=== PATIENT | male | born 1945 | race Caucasian/White ===

== ENCOUNTER 2018-07-21 17:29 | Inpatient (IN) | payer MEDICARE, BC ==
[~2018-07-21] VITALS: Ht 180.3 cm; Wt 72.6 kg
[2018-07-21] MEDS ORDERED: METOPROLOL SUCC50 MG ORAL (17:34)
[2018-07-21] MEDS ORDERED: AMIODARONE HCL100 MG ORAL (17:34)
[2018-07-21] MEDS ORDERED: FUROSEMIDE40 MG ORAL (17:34)
[2018-07-21] MEDS ORDERED: LORAZEPAM0.5 GM MC (17:34)
[2018-07-21] MEDS ORDERED: LIPITOR80 MG ORAL (17:34)
[2018-07-21] MEDS ORDERED: REMERON45 M1 ORAL (17:34)
[2018-07-21] MEDS ORDERED: XARELTO20 MG ORAL (17:34)
[2018-07-21] MEDS ORDERED: POTASSIUM CHLO20 ME3 PO (17:34)
--- NOTE | 2018-07-21 17:37 | Emergency Room Report ---
History of Present Illness General Chief Complaint: Chest Pain Source: Patient, Medical Record Present Illness HPI The patient presents with chest pain. He states it feels like when he had atrial fibrillation. He denies any palpitations at this time or dizziness. This began at the end of last week. He rates it /10. He was seen at a clinic or earlier today and they did an EKG that was abnormal. There is ST depressions across the septum. Paramedics were summoned. They repeat EKG and the ST changes corrected. They called it into [facility] and they declined the transport to them. The patient was given aspirin and states that he is pain- free at this time. The patient had rapid atrial fibrillation in May. He had cardioversion that was successful at that time. He was discharged on Xarelto. He is also taking amiodarone and metoprolol. Status post CABG x2. No fevers, chills, productive cough, sore throat, rashes, bleeding, melena, hematuria, calf pain or edema. Allergies: Coded Allergies: No Known Allergies (Unverified , 07/21/18) Patient History Past Medical History: see triage record Past Surgical History: CABG Social History: Denies: smoking Social History Narrative from home Reviewed Nursing Documentation: PMH: Agreed; PSxH: Agreed Nursing Documentation-PMH Past Medical History: No History, Except For Hx Cardiac Problems: Yes - CHF; AFIB;CAD; ANEMIA CABG X 2 Review of Systems All Other Systems: negative except mentioned in HPI Physical Exam Vital Signs Date Time Temp Pulse Resp B/P (MAP) Pulse Ox O2 Delivery O2 Flow Rate FiO2 07/21/18 17:23 97.5 102 16 118/76 100 Room Air Sp02 EP Interpretation: reviewed, normal General Appearance: no apparent distress, GCS 15, thin Head: normocephalic Eyes: bilateral eye normal inspection, bilateral eye PERRL ENT: moist mucus membranes Neck: supple Respiratory: lungs clear, normal breath sounds Cardiovascular #1: irregularly irregular - Although mostly regular Cardiovascular #2: 2+ radial (L) Gastrointestinal: normal inspection, normal bowel sounds, non tender, no mass, non-distended Genitourinary: no CVA tenderness Musculoskeletal: back normal, normal range of motion, no calf tenderness, Mirella 's Sign negative Neurologic: alert, oriented x3, grossly normal Psychiatric: depressed affect Skin: normal inspection, warm/dry Medical Decision Making Diagnostic Impression: Primary Impression: Chest pain Qualified Codes: R07.9 - Chest pain, unspecified Additional Impressions: Atrial fibrillation Qualified Codes: I48.0 - Paroxysmal atrial fibrillation Cardioversion Elevated troponin ER Course Patient presents with chest pain with an EKG dated normalizes with decrease in pain. Differential includes acute coronary syndrome, acute myocardial infarction, STEMI posterior, unstable angina amongst others. He is in atrial fibrillation at this time. Evaluation will be with EKG, chest x-ray and labs. The patient will be given nitroglycerin paste. Patient is placed on a city engineer. EKG with atrial fibrillation rate controlled and septal ST depression. This is not a posterior STEMI. Chest x-ray with right atrial enlargement. No infiltrates. Normal white count with slight anemia. INR is prolonged. Slightly low potassium. Elevated BNP. Called with marginally high troponin. Aspirin and nitrates already given. Patient bradycardic. Repeat EKG. 19:00 SB rate 55 NSSTTW changes. Because of the bradycardia metoprolol is held. Because of being on Xarelto no heparin is given. Discussed with patient's sports marketing coordinator. Agrees with admission. Discussed findings with patient. Calling Dr. Deshpande. Laboratory Tests Test 07/21/18 17:48 White Blood Count 5.2 K/UL (4.8-10.8) Red Blood Count 3.75 M/UL (4.70-6.10) L Hemoglobin 11.3 G/DL (14.2-18.0) L Hematocrit 35.1 % (42.0-52.0) L Mean Corpuscular Volume 94 FL (80-99) Mean Corpuscular Hemoglobin 30.2 PG (27.0-31.0) Mean Corpuscular Hemoglobin Concent 32.2 G/DL (32.0-36.0) Red Cell Distribution Width 15.0 % (11.6-14.8) H Platelet Count 172 K/UL (150-450) Mean Platelet Volume 7.4 FL (6.5-10.1) Neutrophils (%) (Auto) 66.0 % (45.0-75.0) Lymphocytes (%) (Auto) 15.4 % (20.0-45.0) L Monocytes (%) (Auto) 15.7 % (1.0-10.0) H Eosinophils (%) (Auto) 1.6 % (0.0-3.0) Basophils (%) (Auto) 1.3 % (0.0-2.0) Prothrombin Time 17.9 SEC (9.30-11.50) H Prothrombin Time INR 1.7 (0.9-1.1) H PTT 39 SEC (23-33) H Sodium Level 141 MMOL/L (136-145) Potassium Level 3.3 MMOL/L (3.5-5.1) L Chloride Level 104 MMOL/L (98-107) Carbon Dioxide Level 26 MMOL/L (21-32) Anion Gap 11 mmol/L (5-15) Blood Urea Nitrogen 29 mg/dL (7-18) H Creatinine 1.4 MG/DL (0.55-1.30) H Estimate Glomerular Filtration Rate mL/min (>60) Glucose Level 126 MG/DL (74-106) H Calcium Level 9.3 MG/DL (8.5-10.1) Total Bilirubin 0.9 MG/DL (0.2-1.0) Aspartate Amino Transferase (AST) 42 U/L (15-37) H Alanine Aminotransferase (ALT) 33 U/L (12-78) Alkaline Phosphatase 93 U/L (46-116) Total Creatine Kinase 58 U/L (26-308) Troponin I 0.078 ng/mL (0.000-0.056) Pro-B-Type Natriuretic Peptide 3062 pg/mL (0-125) H Total Protein 7.6 G/DL (6.4-8.2) Albumin 3.4 G/DL (3.4-5.0) Globulin 4.2 g/dL Albumin/Globulin Ratio 0.8 (1.0-2.7) L EKG Diagnostic Results Rate: normal Rhythm: other - A fib ST Segments: other - st depression septally Rhythm Strip Diag. Results EP Interpretation: yes Rhythm: NSR, no PVC's, no ectopy Chest X-Ray Diagnostic Results Chest X-Ray Diagnostic Results : Chest X-Ray Ordered: Yes # of Views/Limited/Complete: 1 View Indication: Chest Pain EP Interpretation: Yes Interpretation: no consolidation, no effusion, no pneumothorax, other - Enlarged right atrium Impression: Other Electronically Signed by: Electronically signed by Jose Vasquez MD Last Vital Signs Date Time Temp Pulse Resp B/P (MAP) Pulse Ox O2 Delivery O2 Flow Rate FiO2 07/22/18 00:00 55 07/22/18 00:00 97.6 19 129/63 (85) 96 07/21/18 22:02 Room Air Status: improved Disposition: ADMITTED INPATIENT Condition: Serious Jose Vasquez MD Jul 21, 2018 17:37
[2018-07-21 17:38] VITALS: BP 116/68
--- NOTE | 2018-07-21 17:40 | NUR ---
ED Nurse Note: pt brought in by amb from doctors office c/o afib. pt had afib in may and was cardiovert and was managed by medication amiodarone and xarelto but went to doctor's office and noted afib. pt currently denies chest pain. Pt AA&ox4, gcs=15, skin warm and dry, resp even and unlabored on RA, -n/v/d, ambulatory w/o assisted devices w/ steady gait. Afib on carrot buncher, vss, will cont monitor. hx CABG.
[2018-07-21] MEDS ORDERED: Nitroglycerin 2% oint pkt TOPIC ONE (17:45)
--- NOTE | 2018-07-21 18:00 | NUR ---
ED Nurse Note: cardiology Dr. Bonner [phone], ERMD notified.
[2018-07-21 18:06] LABS: BASOPHILS % (AUTO) 1.3 % (0.0-2.0); EOSINOPHILS % (AUTO) 1.6 % (0.0-3.0); HEMATOCRIT 35.1 % (42.0-52.0); HEMOGLOBIN 11.3 G/DL (14.2-18.0); LYMPHOCYTES % (AUTO) 15.4 % (20.0-45.0); MEAN CORPUSCULAR VOLUME 94 FL (80-99); MONOCYTES % (AUTO) 15.7 % (1.0-10.0); PLATELET COUNT 172 K/UL (150-450); RED BLOOD COUNT 3.75 M/UL (4.70-6.10); WHITE BLOOD COUNT 5.2 K/UL (4.8-10.8)
[2018-07-21 18:12] LABS: ANION GAP 11 mmol/L (5-15); BLOOD UREA NITROGEN 29 mg/dL (7-18); CALCIUM 9.3 MG/DL (8.5-10.1); CARBON DIOXIDE 26 MMOL/L (21-32); CHLORIDE 104 MMOL/L (98-107); CREATININE 1.4 MG/DL (0.55-1.30); POTASSIUM 3.3 MMOL/L (3.5-5.1); SODIUM 141 MMOL/L (136-145)
[2018-07-21 18:13] LABS: INR 1.7 (0.9-1.1)
[2018-07-21 18:23] LABS: ALANINE AMINOTRANSFERASE 33 U/L (12-78); ALBUMIN 3.4 G/DL (3.4-5.0); ALBUMIN/GLOBULIN RATIO 0.8 (1.0-2.7); ALKALINE PHOSPHATASE 93 U/L (46-116); ASPARTATE AMINO TRANSFERASE 42 U/L (15-37); BILIRUBIN,TOTAL 0.9 MG/DL (0.2-1.0); CREATINE KINASE 58 U/L (26-308)
[2018-07-21 18:38] VITALS: BP 118/57
--- NOTE | 2018-07-21 18:41 | NUR ---
ED Nurse Note: Pt taken to CT via janice.
--- NOTE | 2018-07-21 19:00 | NUR ---
ED Nurse Note: repeat EKG done by KATYA Cason pt currently sinus roger on monitoring and evaluation advisor.
[2018-07-21] MEDS ORDERED: LORAZEPAM0.5 MG ORAL (19:31)
[2018-07-21 19:38] VITALS: BP 108/51
[2018-07-21] MEDS ORDERED: Nitroglycerin Subl 0.4mg tab SL PRN (19:45)
[2018-07-21 20:38] VITALS: BP 107/51
[2018-07-21] MEDS: Metoprolol Tartrate 50mg tab ORAL SCH (21:00)
--- NOTE | 2018-07-21 21:12 | NUR ---
ED Nurse Note: report given to ANTONELLA Osman from Tele.
--- NOTE | 2018-07-21 21:55 | NUR ---
ED Nurse Note: pt transferred to tele, all belongings sent w/ pt, pt vss, resp even and unlabored on RA, sinus roger on cardiac mointor.
[2018-07-21 22:00] VITALS: BP 112/63
--- NOTE | 2018-07-21 22:00 | NUR ---
NURSE NOTES: Report received from ANTONELLA Salcedo. Pt arrived on unit via gurney. surgery scheduler was applied. Pt heart rhythm is SB. Pt belongings verified at bedside. Pt is in stable condition. Pt is A+Ox4 with no signs or symptoms of pain or cardiopulmonary distress noted. Call light is within reach, bed in the lowest position, bed rails engaged and raised x3. Will continue to monitor
--- NOTE | 2018-07-21 22:15 | Consultation ---
DATE OF CONSULTATION: 07/21/2018 CONSULTING PHYSICIAN: Titi Finn M.D. REFERRING PHYSICIAN: Bharathi Deshpande M.D. REASON FOR CONSULTATION: Acute kidney injury. HISTORY OF PRESENT ILLNESS: The patient is a pleasant 73-year-old gentleman who is being admitted for further evaluation and care of chest pain that started over this past week. He notes that it is approximately 6/10. It started getting worse over at the clinic today. The patient does have a history of atrial fibrillation and in 2011 had a 2-vessel CABG. The patient's breathing has improved. Chest pain has been alleviated. Denies any nausea, vomiting, or diarrhea. ALLERGIES: No known drug allergies. PAST MEDICAL HISTORY: 1. Coronary artery disease. 2. Hypertension. 3. Atrial fibrillation. 4. Anxiety. SOCIAL HISTORY: The patient denies any current tobacco, alcohol, or illicit drug use. PAST SURGICAL HISTORY: Status post coronary artery bypass graft x2 vessel. REVIEW OF SYSTEMS: NEUROLOGIC: The patient denies headache, change in vision, syncope, or presyncopal episodes. CARDIOVASCULAR: The patient was having chest pain and pressure. PULMONARY: No difficulty breathing, productive cough, or sputum. GASTROINTESTINAL/GENITOURINARY: No change urinary or bowel habits. No nausea, vomiting, or diarrhea. ENDOCRINOLOGY: No night sweats, fevers, or chills. LABORATORY DATA: Labs dated 07/21/2018, white cell count 5.2, hemoglobin 11.3, platelet count 172. Sodium 141, potassium 3.3, BUN 29, creatinine 1.4. Troponin 0.078. INR 1.7. PHYSICAL EXAMINATION: VITAL SIGNS: Blood pressure 108/53, respiratory 16, pulse 103, temperature 97.5, 100% oxygen saturation on room air. GENERAL: The patient awake, alert, in no distress. HEENT: Extraocular muscles intact. No lymphadenopathy noted. Oropharyngeal mucosa is clear and dry. CARDIOVASCULAR: S1, S2. Irregularly irregular. Tachycardic. PULMONARY: Clear to auscultation bilaterally. No rales, rhonchi, or wheezes. ABDOMEN: Nondistended and nontender. EXTREMITIES: No edema noted. ASSESSMENT AND PLAN: 1. Acute kidney injury versus chronic kidney disease. Current creatinine 1.4. At this time, we will hold any diuretics and monitor the patient carefully. Renal ultrasound to rule out the possibility of obstruction. Repeat BMP in a.m. and proceed accordingly. 2. Acute coronary syndrome/chest pain with elevated troponin. Defer management to Cardiology. 3. Atrial fibrillation. The patient on Xarelto. 4. Hypertension. We will continue metoprolol and avoid hypotension. 5. Hypokalemia. We will replace potassium. Titi Finn MD DR: MEGAN JOB#: [id number] CC:
[2018-07-21] MEDS: Atorvastatin 20mg tab ORAL SCH (22:25)
[2018-07-21] MEDS ORDERED: Amiodarone 200mg tab ORAL SCH (23:00)
[2018-07-21] MEDS: LORazepam 0.5mg tab ORAL PRN (23:06)
[2018-07-22] VITALS: BP 129/63
[2018-07-22] MEDS: Aspirin Baby 81mg ORAL SCH ×2 (00:16→09:36)
--- NOTE | 2018-07-22 02:30 | Consultation ---
DATE OF CONSULTATION: 07/21/2018 CARDIOLOGY CONSULTATION CONSULTING PHYSICIAN: Jose Diamond M.D. REFERRING PHYSICIAN: Bharathi Deshpande M.D. REASON FOR CONSULTATION: Acute myocardial ischemia. HISTORY OF PRESENT ILLNESS: This 73-year-old male, who is status post coronary artery bypass graft surgery in 2011. He has not had any chest pain of concern or hospitalizations since several days ago, however, he has had on and off chest pressure and saw his primary certified industrial hygienist today. Concern was raised over his electrocardiogram and he was referred to the hospital. Paramedics were summoned and he was brought to the [facility] even though his doctor's office is at [facility]. The patient's initial troponin level was 0.08 and his EKG revealed sinus rhythm with anterolateral T-wave inversions suggesting acute ischemia. The patient's chest pain apparently resolved prior to his arrival here. PAST MEDICAL HISTORY: Hypertension, paroxysmal atrial fibrillation, and coronary artery disease as described above. SOCIAL HISTORY: Negative for smoking, alcohol, or substance abuse. FAMILY HISTORY: Noncontributory. ALLERGIES: Unknown. MEDICATIONS: Prior to admission, reviewed and reconciled and include rivaroxaban. REVIEW OF SYSTEMS: No fevers. No chills. No cough. No sputum production. No history of abnormal blood clotting. No prior history of stroke. No history of diabetes mellitus, cholesterol, parameters are not presently available. PHYSICAL EXAMINATION: VITAL SIGNS: Blood pressure 108/53, pulse 103, and respirations 16. Afebrile. HEENT: Conjunctivae are pink. Oropharynx clear. NECK: Supple. LUNGS: Clear. Median sternotomy scar. HEART: Regular rhythm and rate. Normal S1, S2. There is a fourth heart sound. ABDOMEN: Soft. EXTREMITIES: No edema. DIAGNOSTIC DATA: EKG as noted above. Troponin 0.078. Potassium 3.3. Hemoglobin 11.3. IMPRESSION: 1. Acute coronary insufficiency and probable non-ST elevation myocardial infarction in the setting of known ischemic heart disease with prior coronary artery bypass graft. 2. Paroxysmal atrial fibrillation, on rivaroxaban for cardioembolic prophylaxis. 3. Hypertensive heart disease with controlled blood pressure. 4. Hypokalemia. 5. Chronic kidney disease. PLAN: 1. Hold rivaroxaban and start Lovenox in anticipation of probable coronary angiography. This will require transfer to [facility]. 2. Continue beta-efrain, add aspirin. 3. Check lipid panel. 4. Anticipate statin therapy. 5. Replace potassium. 6. Check magnesium. Jose Diamond M.D. DR: JB JOB#: [id number] CC:
[2018-07-22 04:00] VITALS: BP 111/57
--- NOTE | 2018-07-22 04:15 | History and Physical Report ---
DATE OF ADMISSION: 07/21/2018 HISTORY OF PRESENT ILLNESS: This is a 73-year-old male who came to the hospital with chest pain. The patient has a history of atrial fibrillation, however, denies any palpitations or dizziness. He was seen at the clinic earlier and he was told that he has abnormal EKG and he was transferred to [facility] for subsequent management and care. I reviewed his records from outside facility at [facility] and note that the patient has a history of hypertension, atrial fibrillation, CAD, status post CABG, ROSALES to LAD, and SVG to D1 ramus. He had a cardioversion in May 2018 and is maintained on Xarelto, metoprolol, and amiodarone. The patient obviously had a diastolic heart failure and is a diabetic dependent with a history of right pleural effusion. At this time, the patient states that he is feeling well. He is intolerant of aspirin. HOME MEDICATIONS: Reviewed and reconciled in the chart. ALLERGIES: None reported. SURGERIES: CABG, past history as above, atrial fibrillation, CAD, anemia, CABG, and CHF. Denies any headaches, hematemesis, melena, or hematochezia. PHYSICAL EXAMINATION: GENERAL: Reveals a 73-year-old male. HEENT: Unremarkable. LUNGS: Clear breath sounds bilaterally. Normal heart sounds. ABDOMEN: Soft. NEUROLOGIC: Nonfocal. PHYSICAL EXAMINATION: VITAL SIGNS: Blood pressure is 130/70, heart rate 84, respirations 18. Afebrile. LABORATORY DATA: Lab testing shows normal CBC and BMP with the exception of hemoglobin at 9.3, potassium 3.6, creatinine 1.4, , troponin 0.078. ProBNP is 3062. IMPRESSION: 1. Elevated troponin. 2. History of atrial fibrillation. 3. Status post cardioversion. 4. History of coronary artery bypass graft. 5. Diastolic heart failure. DISCUSSION: Admitted to the hospital. We will consult Cardiology and Nephrology. Continue home medications. 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 We will attempt to review further records from [facility]. Bharathi Deshpande M.D. DR: ANNE JOB#: [id number] CC:
[2018-07-22 05:50] LABS: BASOPHILS % (AUTO) 1.1 % (0.0-2.0); EOSINOPHILS % (AUTO) 2.1 % (0.0-3.0); HEMATOCRIT 32.7 % (42.0-52.0); HEMOGLOBIN 10.7 G/DL (14.2-18.0); LYMPHOCYTES % (AUTO) 14.8 % (20.0-45.0); MEAN CORPUSCULAR VOLUME 93 FL (80-99); MONOCYTES % (AUTO) 18.1 % (1.0-10.0); NEUTROPHILS % (AUTO) 63.9 % (45.0-75.0); PLATELET COUNT 160 K/UL (150-450); RED BLOOD COUNT 3.53 M/UL (4.70-6.10); RED CELL DISTRIBUTION WIDTH 15.3 % (11.6-14.8); WHITE BLOOD COUNT 4.7 K/UL (4.8-10.8)
[2018-07-22 05:53] LABS: ANION GAP 8 mmol/L (5-15); BLOOD UREA NITROGEN 25 mg/dL (7-18); CALCIUM 9.3 MG/DL (8.5-10.1); CARBON DIOXIDE 28 MMOL/L (21-32); CHLORIDE 108 MMOL/L (98-107); CREATININE 1.3 MG/DL (0.55-1.30); SODIUM 144 MMOL/L (136-145)
[2018-07-22 05:59] LABS: CHOLESTEROL 88 MG/DL (< 200); HDL CHOLESTEROL 33 MG/DL (40-60); TRIGLYCERIDES 66 MG/DL (30-150)
--- NOTE | 2018-07-22 06:34 | NUR ---
NURSE NOTES: Pt troponin values were 0.078 yesterday and 0.[address] Diamond notified.
--- NOTE | 2018-07-22 07:23 | NUR ---
HAND-OFF: Report given to ANTONELLA Varner. Pt is in stable condition, plan of care endorsed.
--- NOTE | 2018-07-22 07:33 | NUR ---
CASE MANAGEMENT:REVIEW 73 YR OLD FEMALE BIBA FROM MD'S OFFICE CC: DYSRHYTHMIA WITH INTERMITTENT CHEST PAIN SI: ACS. AFIB. ELEVATED TROPONIN 97.5 102 16 118/76 100% ON RA K-3.3 BUN+29 CR+1.4 TROPONIN(+) 0.078 BNP+3062 IS: ASA PO GIVEN BY EMS NTG 1" TO CW CHEST XRAY RENAL US : TO TELEMETRY PLAN: SERIAL TROPONIN INTERQUAL CRITERIA MET
[2018-07-22 08:00] VITALS: BP 111/52
[2018-07-22] MEDS: Metoprolol Tartrate 50mg tab ORAL SCH ×2 (09:00→21:00)
[2018-07-22] MEDS ORDERED: LORazepam 0.5mg tab ORAL SCH (09:00)
[2018-07-22] MEDS: Amiodarone 200mg tab ORAL SCH ×2 (09:35→18:18)
[2018-07-22] MEDS: Enoxaparin 80mg Inj SUBQ SCH ×2 (09:39→22:04)
[2018-07-22] MEDS: LORazepam 0.5mg tab ORAL PRN ×3 (09:42→22:02)
--- NOTE | 2018-07-22 10:54 | Nephrology Progress Note ---
Assessment/Plan Assessment/Plan A/P 1) ALMAS vs CKD 3- likley cardiorenal in nature - Cr down to 1.3 - Renal US pending, renal function stable - conservative mgmt, avoid nephrotoxins 2) Acute coronary insufficiency and probable non-ST elevation myocardial infarction in the setting of known ischemic heart disease with prior coronary artery bypass graft. - await transfer to [place] 3) HTN- at goal Subjective Date patient seen: Jul 22, 2018 Time patient seen: 10:43 ROS Limited/Unobtainable: No Cardiovascular: Reports: chest pain Allergies: Coded Allergies: No Known Allergies (Unverified , 07/21/18) Subjective Patient feeling better, CP has improved Objective Last 24 Hour Vital Signs Date Time Temp Pulse Resp B/P (MAP) Pulse Ox O2 Delivery O2 Flow Rate FiO2 07/22/18 09:00 59 111/52 07/22/18 08:00 97.3 59 20 111/52 (71) 97 07/22/18 04:00 50 07/22/18 04:00 97.5 53 18 111/57 (75) 100 07/22/18 00:00 55 07/22/18 00:00 97.6 60 19 129/63 (85) 96 07/21/18 22:02 98.4 59 18 118/59 100 Room Air 07/21/18 22:00 97.5 54 18 112/63 (79) 94 07/21/18 22:00 Room Air 07/21/18 21:00 57 112/63 07/21/18 20:38 98.0 58 16 107/51 100 Room Air 07/21/18 19:38 98.0 55 16 108/51 100 Room Air 07/21/18 18:38 97.5 99 16 118/57 100 Room Air 07/21/18 17:43 108/53 07/21/18 17:38 102 16 Room Air 07/21/18 17:38 97.5 104 16 116/68 100 Room Air 07/21/18 17:23 97.5 102 16 118/76 100 Room Air Intake and Output 07/21/18 07/22/18 18:59 06:59 Intake Total 10 ml Balance 10 ml Intake Oral 10 ml # Voids 1 Laboratory Tests 07/21/18 17:48: White Blood Count 5.2, Red Blood Count 3.75L, Hemoglobin 11.3L, Hematocrit 35.1L , Mean Corpuscular Volume 94, Mean Corpuscular Hemoglobin 30.2, Mean Corpuscular Hemoglobin Concent 32.2, Red Cell Distribution Width 15.0H, Platelet Count 172, Mean Platelet Volume 7.4, Neutrophils (%) (Auto) 66.0, Lymphocytes (%) (Auto) 15.4L, Monocytes (%) (Auto) 15.7H, Eosinophils (%) (Auto ) 1.6, Basophils (%) (Auto) 1.3, Prothrombin Time 17.9H, Prothromb Time International Ratio 1.7H, Activated Partial Thromboplast Time 39H, Sodium Level 141, Potassium Level 3.3L, Chloride Level 104, Carbon Dioxide Level 26, Anion Gap 11, Blood Urea Nitrogen 29H, Creatinine 1.4H, Estimat Glomerular Filtration Rate , Glucose Level 126H, Calcium Level 9.3, Total Bilirubin 0.9, Aspartate Amino Transf (AST/SGOT) 42H, Alanine Aminotransferase (ALT/SGPT) 33, Alkaline Phosphatase 93, Total Creatine Kinase 58, Troponin I 0.078H, Pro-B-Type Natriuretic Peptide 3062H, Total Protein 7.6, Albumin 3.4, Globulin 4.2, Albumin /Globulin Ratio 0.8L 07/22/18 05:04: White Blood Count 4.7L, Red Blood Count 3.53L, Hemoglobin 10.7L, Hematocrit 32.7L, Mean Corpuscular Volume 93, Mean Corpuscular Hemoglobin 30.4, Mean Corpuscular Hemoglobin Concent 32.8, Red Cell Distribution Width 15.3H, Platelet Count 160, Mean Platelet Volume 6.9, Neutrophils (%) (Auto) 63.9, Lymphocytes (%) (Auto) 14.8L, Monocytes (%) (Auto) 18.1H, Eosinophils (%) (Auto ) 2.1, Basophils (%) (Auto) 1.1, Sodium Level 144, Potassium Level 4.0, Chloride Level 108H, Carbon Dioxide Level 28, Anion Gap 8, Blood Urea Nitrogen 25H, Creatinine 1.3, Estimat Glomerular Filtration Rate , Glucose Level 65L, Calcium Level 9.3, Troponin I 0.098H, Pro-B-Type Natriuretic Peptide 3168H, Triglycerides Level 66, Cholesterol Level 88, LDL Cholesterol 47, HDL Cholesterol 33L, Cholesterol/HDL Ratio 2.7L Height (Feet): 5 Height (Inches): 11.00 Weight (Pounds): 165 General Appearance: no apparent distress, alert EENT: normal ENT inspection Cardiovascular: normal rate, regular rhythm Respiratory/Chest: lungs clear, normal breath sounds Abdomen: non tender, soft Edema: no edema noted Arm (L), no edema noted Arm (R), no edema noted Leg (L), no edema noted Leg (R), no edema noted Pedal (L), no edema noted Pedal (R), no edema noted Generalized Titi Finn MD Jul 22, 2018 10:54
--- NOTE | 2018-07-22 10:57 | Diagnostic Imaging Report ---
Indication: Chest pain Technique: One view of the chest Comparison: none Findings: Some calcific fibronodular scarring is seen in the left lung apex. The lungs and pleural spaces are otherwise clear. The heart is borderline enlarged. There are median sternotomy sutures. Impression: Borderline cardiomegaly No acute process
--- NOTE | 2018-07-22 11:59 | Diagnostic Imaging Report ---
Indication: Acute renal failure Technique: Grayscale and duplex images of the kidneys, retroperitoneum, and bladder were obtained. Comparison: none Findings: Right kidney measures 10.1 cm in length. Left kidney measures 9.1 cm in length. Both kidneys demonstrate normal echogenicity. No hydronephrosis. Echogenic shadowing foci measuring up to 7 mm diameter seen in the left renal sinus. The right kidney demonstrates a septated cyst in the interpolar region, measuring 2.5 x 3.8 cm. The septation is equivocally somewhat thick although this could be an artifact of intervening parenchyma. Normal inferior vena cava. Bladder is normal. Impression: 7 mm echogenic focus in the left renal sinus, could represent a nonspecific nonobstructive calculus 2.5 x 3.8 cm right renal cyst; possible thick septation noted indicating this is a complex cyst for which further evaluation with contrast CT, when patient condition permits, is recommended. Findings discussed by phone with Dr. Finn at the time of interpretation
[2018-07-22 12:00] VITALS: BP 98/53
--- NOTE | 2018-07-22 13:24 | Cardiology Report ---
APPROVED REPORT EKG Measurement Heart [id number] MI [id number] Sinus bradycardia Prolonged QT Abnormal ECG
--- NOTE | 2018-07-22 13:24 | Cardiology Report ---
APPROVED REPORT EKG Measurement Heart [id number] Sinus bradycardia Prolonged QT Abnormal ECG
[2018-07-22 16:00] VITALS: BP 111/57
[2018-07-22] MEDS ORDERED: Xarelto 10mg tab ORAL SCH (16:30)
--- NOTE | 2018-07-22 19:51 | NUR ---
NURSE NOTES: Report received from ANTONELLA Phillips. Pt is in stable condition. Pt is A+Ox4 with no signs or symptoms of pain or cardiopulmonary distress noted. Call light is within reach, bed in the lowest position, bed rails engaged and raised x3. Will continue to monitor
[2018-07-22 20:00] VITALS: BP 122/65
[2018-07-22] MEDS: Atorvastatin 20mg tab ORAL SCH (22:02)
[2018-07-23] VITALS: BP 116/62
--- NOTE | 2018-07-23 00:21 | NUR ---
NURSE NOTES: Spoke with Henry regarding bed. Gave updates on patient and they are hoping to have a bed for him in the morning.
--- NOTE | 2018-07-23 02:46 | Progress Note ---
DATE: 07/22/2018 SUBJECTIVE: The patient has had an episode of chest pain this morning before he got his medications. He remains in bed. PHYSICAL EXAMINATION: VITAL SIGNS: Blood pressure 122/65, pulse 58, respiratory rate 18. LUNGS: Clear. CARDIAC: Regular. Normal S1, S2 with a fourth heart sound. ABDOMEN: Soft. EXTREMITIES: No edema. LABORATORY AND DIAGNOSTIC DATA: Troponin has increased to 0.098. Pro natriuretic peptide is 3100. Chest x-ray reveals no acute process yesterday and cardiomegaly. EKG reveals sinus rhythm with anterolateral T-wave inversions. IMPRESSION: 1. Acute myocardial ischemia and possible non-ST elevation infarction in the setting of ischemic cardiomyopathy with prior CABG. 2. Paroxysmal atrial fibrillation. 3. Sinus bradycardia, on beta-efrain. 4. Hyperlipidemia. 5. 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 PLAN: Discussed with primary sales solutions associate, . The patient was put on the transfer list at [facility] by me last night for cardiac catheterization. In the interim, he will be continued on beta-blockers and antiplatelet therapy and diuresed based on clinical parameters. He is on Lovenox rather than rivaroxaban in anticipation of cardiac catheterization and he will continue on anti-lipid therapy. Jose Diamond M.D. DR: RITESH JOB#: [id number] CC:
[2018-07-23 04:00] VITALS: BP 100/43
--- NOTE | 2018-07-23 06:39 | Pulmonology Progress Note ---
Assessment/Plan Assessment/Plan 1. Elevated troponin. NSTEMI 2. History of atrial fibrillation. 3. Status post cardioversion. 4. History of coronary artery bypass graft. 5. Diastolic heart failure. Cardiomyopathy DISCUSSION: Seen by Cardiology and Nephrology. Continue home medications. I will follow as computerized table cutter. Transfer planning in place to [facility] Subjective Interval Events: No new events Constitutional: Reports: no symptoms HEENT: Repors: no symptoms Respiratory: Reports: no symptoms Cardiovascular: Reports: no symptoms Gastrointestinal/Abdominal: Reports: no symptoms Allergies: Coded Allergies: No Known Allergies (Unverified , 07/21/18) Objective Last 24 Hour Vital Signs Date Time Temp Pulse Resp B/P (MAP) Pulse Ox O2 Delivery O2 Flow Rate FiO2 07/23/18 04:00 54 07/23/18 04:00 98.9 66 18 100/43 (62) 98 07/23/18 00:00 97.7 63 18 116/62 (80) 94 07/22/18 21:00 58 122/65 07/22/18 21:00 Room Air 07/22/18 20:00 97.5 58 18 122/65 (84) 96 07/22/18 20:00 57 07/22/18 16:00 59 07/22/18 16:00 97.5 57 20 111/57 (75) 98 07/22/18 12:00 97.5 58 18 98/53 (68) 96 07/22/18 12:00 59 07/22/18 09:00 Room Air 07/22/18 09:00 59 111/52 07/22/18 08:00 97.3 59 20 111/52 (71) 97 07/22/18 08:00 58 Intake and Output 07/22/18 07/23/18 19:00 07:00 Intake Total 360 ml Balance 360 ml Intake Oral 360 ml # Voids 3 1 # Bowel Movements 1 General Appearance: no acute distress HEENT: normocephalic Respiratory/Chest: chest wall non-tender, lungs clear Cardiovascular: normal peripheral pulses, normal rate Abdomen: normal bowel sounds Current Medications Medications (Trade) Dose Ordered Sig/Didi Route PRN Reason Start Time Stop Time Status Last Admin Dose Admin Acetaminophen (Tylenol) 650 mg Q4H PRN ORAL Mild Pain (Pain Scale 1-3) 07/21/18 19:45 08/20/18 19:44 07/22/18 23:45 Amiodarone HCl (Cordarone) 200 mg BID ORAL 07/22/18 09:00 08/21/18 08:59 07/22/18 18:18 Aspirin (ASA) 162 mg DAILY ORAL 07/22/18 00:00 08/21/18 00:00 07/22/18 09:36 Atorvastatin Calcium (Lipitor) 40 mg QHS ORAL 07/21/18 21:00 08/20/18 20:59 07/22/18 22:02 Dextrose (Dextrose 50%) 25 ml Q30M PRN IV Hypoglycemia 07/21/18 19:45 08/20/18 19:44 Dextrose (Dextrose 50%) 50 ml Q30M PRN IV Hypoglycemia 07/21/18 19:45 08/20/18 19:44 Enoxaparin Sodium (Lovenox) 80 mg EVERY 12 HOURS SUBQ 07/22/18 09:00 08/21/18 08:59 07/22/18 22:04 Famotidine (Pepcid) 40 mg DAILY ORAL 07/22/18 09:00 08/21/18 08:59 07/22/18 09:34 Lorazepam (Ativan) 0.5 mg TID PRN ORAL For Anxiety 07/21/18 23:00 07/28/18 22:59 07/22/18 22:02 Metoprolol Tartrate (Lopressor) 50 mg Q12HR ORAL 07/21/18 21:00 08/20/18 20:59 Mirtazapine (Remeron) 45 mg BEDTIME ORAL 07/21/18 21:00 08/20/18 20:59 07/22/18 22:02 Nitroglycerin (Ntg) 0.4 mg Q5M PRN SL Prn Chest Pain 07/21/18 19:45 08/20/18 19:44 Ondansetron HCl (Zofran) 4 mg Q6H PRN IVP Nausea & Vomiting 07/21/18 19:45 08/20/18 19:44 Bharathi Deshpande MD Jul 23, 2018 06:39
--- NOTE | 2018-07-23 07:25 | NUR ---
NURSE NOTES: RECEIVED PT RESTING IN BED AWAKE AND ALERT ,SEEMS AGITATED AND HYPER VERBAL STATING " I HAVE MILD CP AND ANXIETY" .PT MEDICATED WITH ATIVAN 0.5 MG P.O FOR AGITATION AND TYLENOL 650MG P.O FOR PAIN.WILL CONT TO MONITOR.
--- NOTE | 2018-07-23 07:28 | NUR ---
HAND-OFF: Report given to ANTONELLA Stephenson. Pt is in stable condition; plan of care endorsed.
[2018-07-23 07:30] LABS: ANION GAP 9 mmol/L (5-15); BLOOD UREA NITROGEN 20 mg/dL (7-18); CARBON DIOXIDE 27 MMOL/L (21-32); CHLORIDE 107 MMOL/L (98-107); CREATININE 1.3 MG/DL (0.55-1.30); POTASSIUM 4.1 MMOL/L (3.5-5.1); SODIUM 143 MMOL/L (136-145)
[2018-07-23 08:00] VITALS: BP 134/76
[2018-07-23] MEDS: LORazepam 0.5mg tab ORAL PRN (08:10)
--- NOTE | 2018-07-23 08:12 | Nephrology Progress Note ---
Assessment/Plan Assessment/Plan A/P 1) CKD 3- likley cardiorenal in nature - Cr stable at 1.3 - conservative mgmt, avoid nephrotoxins 2) Acute coronary insufficiency and probable non-ST elevation myocardial infarction in the setting of known ischemic heart disease with prior coronary artery bypass graft. - await transfer to [place] 3) HTN- at goal 4) Right renal cyst -2.5 x 3.8 cm right renal cyst; possible thick septation noted indicating this is a complex cyst for which further evaluation with contrast CT, when patient condition permits - patient will need follow up Subjective Date patient seen: Jul 23, 2018 Time patient seen: 08:09 ROS Limited/Unobtainable: No Cardiovascular: Reports: chest pain Allergies: Coded Allergies: No Known Allergies (Unverified , 07/21/18) Subjective Patient says chest pain returned overnite Objective Last 24 Hour Vital Signs Date Time Temp Pulse Resp B/P (MAP) Pulse Ox O2 Delivery O2 Flow Rate FiO2 07/23/18 04:00 54 07/23/18 04:00 98.9 66 18 100/43 (62) 98 07/23/18 00:00 97.7 63 18 116/62 (80) 94 07/22/18 21:00 58 122/65 07/22/18 21:00 Room Air 07/22/18 20:00 97.5 58 18 122/65 (84) 96 07/22/18 20:00 57 07/22/18 16:00 59 07/22/18 16:00 97.5 57 20 111/57 (75) 98 07/22/18 12:00 97.5 58 18 98/53 (68) 96 07/22/18 12:00 59 07/22/18 09:00 Room Air 07/22/18 09:00 59 111/52 Intake and Output 07/22/18 07/23/18 19:00 07:00 Intake Total 360 ml Balance 360 ml Intake Oral 360 ml # Voids 3 1 # Bowel Movements 1 Laboratory Tests 07/23/18 06:30: Sodium Level 143, Potassium Level 4.1, Chloride Level 107, Carbon Dioxide Level 27, Anion Gap 9, Blood Urea Nitrogen 20H, Creatinine 1.3, Estimat Glomerular Filtration Rate , Glucose Level 69L, Calcium Level 9.0 Height (Feet): 5 Height (Inches): 11.00 Weight (Pounds): 160 General Appearance: no apparent distress, alert EENT: normal ENT inspection Neck: normal alignment, supple Cardiovascular: normal rate, regular rhythm Respiratory/Chest: lungs clear, normal breath sounds Abdomen: non tender, soft Edema: no edema noted Arm (L), no edema noted Arm (R), no edema noted Leg (L), no edema noted Leg (R), no edema noted Pedal (L), no edema noted Pedal (R), no edema noted Generalized Titi Finn MD Jul 23, 2018 08:12
--- NOTE | 2018-07-23 08:40 | NUR ---
NURSE NOTES: PT DENIES PAIN OR ANY DISCOMFORT AND DENIES AGITATION.PT ENCOURAGED TO EAT BREAKFAST.PT EAT 60% ,TOLERATED WELL .WILL CONT TO MONITOR.
[2018-07-23] MEDS: Enoxaparin 80mg Inj SUBQ SCH (10:00)
[2018-07-23] MEDS: Amiodarone 200mg tab ORAL SCH (10:01)
[2018-07-23] MEDS: Metoprolol Tartrate 50mg tab ORAL SCH (10:02)
[2018-07-23] MEDS: Aspirin Baby 81mg ORAL SCH (10:03)
--- NOTE | 2018-07-23 11:04 | NUR ---
DISCHARGE PLAN RECEIVED CALL FROM HILDA AT [facility] PATIENT HAS BEEN ACCEPTED TO [facility] TRANSPORT HAS BEEN ARRANGED FOR 12;00 PRODUCTION LINE TECHNICIAN PATIENT IS IN AGREEMENT WITH TRANSFER
--- NOTE | 2018-07-23 11:59 | NUR ---
NURSE NOTES: Report given to Jessika BERMAN at [facility]. Transportation arranged for 1200pm.
[2018-07-23 12:00] VITALS: BP 119/77
--- NOTE | 2018-07-23 12:30 | NUR ---
NURSE NOTES:REPORT GIVEN TO EDUARDO STAFF OF [facility].PT D/C VIA AMBULANCE ON STABLE CONDITIONS.PT IS DIS CHARGE TO [facility] PER Sussy ARRIAGA AND DR TATE.PT IS NPO AFTER BREAKFAST PER Sussy TATE ORDERS.PT LEFT THE HOSPITAL VIA AMBULANCE WITH [facility] DOMICIC RN ON STABLE CONDITIONS.HAYDER BERMAN IN CHARGE GIVE REPORT TO [facility] DAJA BILINGUAL SALES REPRESENTATIVE.
--- NOTE | 2018-07-24 01:16 | Progress Note ---
DATE: 07/23/2018 CARDIOLOGY PROGRESS NOTE SUBJECTIVE: The patient has no chest pain today. Troponins have normalized. Monitored rhythm sinus. OBJECTIVE: VITAL SIGNS: Blood pressure 134/76, pulse 121, and respirations 18. Monitor, sinus with paroxysms of atrial fibrillation. Potassium is 4.1. LUNG: Few rales. CARDIAC: Regular rhythm and rate. Normal S1, S2. ABDOMEN: Soft. EXTREMITIES: No edema. IMPRESSION: 1. Acute myocardial infarction. 2. Ischemic cardiomyopathy. 3. Post myocardial infarction ischemia. 4. Paroxysmal atrial fibrillation. PLAN: 1. Transferring today for cardiac catheterization. 2. On full anticoagulation with Lovenox pending catheterization. 3. Remains on maximal antianginal therapy. 4. Discussed with primary materials scheduler at [facility] and agrees with plan of care. 5. We will re-dose diuretics following catheterization and assessment of filling pressures. Jose Diamond M.D. DR: KATERYNA JOB#: [id number] CC:
--- NOTE | 2018-07-24 10:40 | Discharge Summary ---
Discharge Summary Discharge Summary _ DATE OF ADMISSION: 07/21/2018 DATE OF DISCHARGE: 07/23/2018 DISCHARGED BY: Dr. Johan Deshpande CONSULTANTS: Jose Finn BRIEF HOSPITAL COURSE: Patient is a 73-year-old male, who presented to the hospital for evaluation of chest pain. Patient has a history of atrial fibrillation. Patient denied any palpitations or dizziness. He was initially seen at a clinic and was told had an abnormal EKG. He was then transferred to [facility] for his further management and care. Review of records from [facility] showed patient has a history of hypertension, atrial fibrillation, coronary artery disease, status post CABG, ROSALES to LAD, and SVG to D1 ramus. He had a cardioversion done in May 2018 and was maintained on Xarelto, metoprolol and amiodarone. The patient had diastolic heart failure and is diabetic dependent with history of right pleural effusion. He is intolerant of aspirin. On evaluation at ED, blood pressure was stable, pulse rate was 102. EKG showed atrial fibrillation with septal ST depression as read by ER physician. Chest x- ray done showed right atrial enlargement. No infiltrates. Blood work did not show any leukocytosis. Hemoglobin and hematocrit were stable. Potassium was 3.3. Creatinine 1.4. Troponin was marginally elevated 0.78. ProBNP 3062. Repeat EKG done showed patient bradycardic with rate of 55 and nonspecific-ST to T wave changes. He was then admitted for evaluation of elevated troponin with underlying history of atrial fibrillation and coronary artery bypass graft. Records Specialist and pharmacy customer care specialist were consulted. EKG was reviewed. Cardiac enzymes were monitored. Potassium was replaced. He was continued on amiodarone and metoprolol. He was given Lipitor. Anticoagulation was switched to Lovenox. He was given GI prophylaxis. Kidney function was monitored. Chronic kidney disease, likely cardiorenal in nature. Kidney ultrasound showed right renal cyst with possible thick septation indicating complex cyst. Will need duration with contrast CT when condition. There was a rise in troponin. EKG showed sinus with anterolateral T wave inversion. Patient was complaining of chest pain. Patient was eventually transferred to [facility] for cardiac cath. FINAL DIAGNOSES: Acute myocardial ischemia and possible non-ST elevated infarction in the setting of ischemic cardiomyopathy with prior CABG Proximal atrial fibrillation Sinus bradycardia, on beta-efrain Hyperlipidemia Acute on chronic systolic and diastolic congestive heart failure Chronic kidney disease stage III Hypertension Complex right renal cyst DISPOSITION: Patient was transferred to [facility]. I have been assigned to complete a discharge summary on this account, I was not involved with the patient's management. Portia Vides NP Jul 24, 2018 10:39
== END 2018-07-23 12:55 | disposition short-term general hospital (02) | DRG 280 ==
LOC: EDBD 17:29 → EMR 17:40 → 2E 18:52 → EDBEDREQ 20:23
DX: I21.4 Non-ST elevation (NSTEMI) myocardial infarction (principal); I50.33 Acute on chronic diastolic (congestive) heart failure; N17.9 Acute kidney failure, unspecified; I13.0 Hypertensive heart and chronic kidney disease with heart failure and stage 1 through stage 4 chronic kidney disease, or unspecified chronic kidney disease; E87.6 Hypokalemia; I25.10 Atherosclerotic heart disease of native coronary artery without angina pectoris; I48.0 Paroxysmal atrial fibrillation; I13.10 Hypertensive heart and chronic kidney disease without heart failure, with stage 1 through stage 4 chronic kidney disease, or unspecified chronic kidney disease; E78.5 Hyperlipidemia, unspecified; N28.1 Cyst of kidney, acquired; I25.5 Ischemic cardiomyopathy; R00.1 Bradycardia, unspecified; N18.3 Chronic kidney disease, stage 3 (moderate); Z79.01 Long term (current) use of anticoagulants; Z95.1 Presence of aortocoronary bypass graft
CPT/HCPCS: 36415; 71045; 76770; 80048; 80053; 80061; 82550; 83880; 84484; 85025; 85610; 85730; 93005; 99285; J8499